=== PATIENT | male | born 1970 | race Caucasian/White ===

== ENCOUNTER 2017-12-10 21:47 | Inpatient (IN) | payer MEDICAID ==
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
[2017-12-10] MEDS ORDERED: ONDANSETRON DISINTEGRATING 4 MG TAB PO PRN (22:01)
[2017-12-10] MEDS ORDERED: ONDANSETRON 4 MG/2 ML VIAL IVP PRN (22:01)
[2017-12-10 22:07] LABS: PLATELET COUNT 287 10^3/uL (150-400)
[2017-12-10 22:17] LABS: INR 0.97 (0.83-1.16); PROTIME(PATIENT) 13.1 SEC (12.0-15.0)
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
[2017-12-11] MEDS: ACETAMINOPHEN 325 MG TAB PO PRN ×2 (05:42→13:28)
[2017-12-11] MEDS: NS 1,000 ML IV SCH ×2 (09:19→16:39)
[2017-12-11] MEDS: THIAMINE HCL 100 MG in NS 100 ML IV SCH (11:28)
[2017-12-11] MEDS: BACITRACIN ZINC 14.2 GM OINTTUBE TP SCH ×2 (11:28→23:31)
[2017-12-11] MEDS ORDERED: ALBUTEROL 60 PUFFS/8 GM MDI IH PRN (15:10)
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
--- NOTE | 2017-12-11 17:00 | PDMN ---
Medical Necessity Medical necessity: Change to IP status per MD order as of 12/11/17. MCG M595 Substance Related D/O, 47 y/o found unresponsive 2nd acute ETOH intoxication, Ethyl ETOH 403, continue IV fluids, monitoring and treatment.
--- NOTE | 2017-12-11 18:36 | TRAUMAPN ---
Trauma Progress Note Assessment/Plan: 12/11/2014 PAD#0 Assessment: Now 20 hours after ETOH level of 400. He should have a level approaching 0 now. No signs of withdrawal Still c/o of midline cervical pain. Plan: MRI neck Subjective: I still have a headache and multiple areas that are tender Objective: Vital Signs Temp Pulse Resp BP Pulse Ox 36.8 C 84 16 120/67 93 12/11/17 16:31 12/11/17 16:31 12/11/17 16:31 12/11/17 16:31 12/11/17 16:31 12/10/17 12/11/17 12/12/17 05:59 05:59 05:59 Intake Total 1000 Balance 1000 PT 13.1 SEC (12.0-15.0) 12/10/17 21:50 INR 0.97 (0.83-1.16) 12/10/17 21:50 - C-Spine Clearance Cervical Spine Cleared: No Physical Exam - Physical Exam General Appearance: WD/WN, alert, no apparent distress Neck: tender midline Respiratory: lungs clear, normal breath sounds Time Spent w/Patient (minutes): 15
[2017-12-11] MEDS: KETOROLAC 30 MG/1 ML SDV IVP SCH ×2 (18:58→23:30)
[2017-12-11] MEDS: ACETAMINOPHEN 325 MG TAB PO SCH (23:30)
[2017-12-11] MEDS: FAMOTIDINE 20 MG TAB PO SCH (23:32)
[2017-12-12] MEDS: ACETAMINOPHEN 325 MG TAB PO SCH ×2 (06:40→14:41)
[2017-12-12] MEDS: KETOROLAC 30 MG/1 ML SDV IVP SCH ×3 (06:41→17:42)
[2017-12-12] MEDS: THIAMINE HCL 100 MG in NS 100 ML IV SCH (09:36)
[2017-12-12] MEDS: FAMOTIDINE 20 MG TAB PO SCH ×2 (09:41→22:27)
[2017-12-12] MEDS: BACITRACIN ZINC 14.2 GM OINTTUBE TP SCH ×2 (09:42→22:27)
[2017-12-12] MEDS: ACETAMINOPHEN 500 MG TAB PO SCH ×2 (14:39→22:27)
--- NOTE | 2017-12-12 14:41 | TRAUMAPNT ---
Trauma Tertiary Progress Note New Findings: C/o blurry vision, left eye. Normally wears glasses but they are not available. He says that this represents a change from baseline. Assessment/Plan: 12/11/2014 PAD#0 Assessment: Now 20 hours after ETOH level of 400. He should have a level approaching 0 now. No signs of withdrawal Still c/o of midline cervical pain. Plan: MRI neck 12/12/2017 PAD#1 Assessment: Because of persistent neck pain an MRI was ordered. 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 Left eye: Has ecchymosis on medial aspect of left upper eyelid and lateral canthus. No hyphema. Otherwise doing well Plan: Neurosurgery consult pending Ophthalmology consult pending Discharge dependent upon consultants input Subjective: my vision is blurry Objective: Vital Signs Temp Pulse Resp BP Pulse Ox 37.1 C 64 14 142/81 H 93 12/12/17 11:41 12/12/17 11:41 12/12/17 11:41 12/12/17 11:41 12/12/17 11:41 12/11/17 12/12/17 12/13/17 05:59 05:59 05:59 Intake Total 1250 Output Total 500 250 Balance 750 -250 PT 13.1 SEC (12.0-15.0) 12/10/17 21:50 INR 0.97 (0.83-1.16) 12/10/17 21:50 - C-Spine Clearance Cervical Spine Cleared: No Physical Exam - Physical Exam General Appearance: WD/WN, alert, no apparent distress EENT: other (visual perception left eye - blurry, left medial upper eyelid ecchymotic. left lateral canthus ecchymotic) Neck: tender midline Respiratory: chest non-tender, lungs clear, normal breath sounds Cardiac/Chest: regular rate, rhythm Abdomen: non-tender, soft Male Genitalia: deferred Rectal: deferred Back: Normal inspection Skin: normal color, warm/dry Extremities: normal range of motion, non-tender Neuro/Psych: no motor/sensory deficits, alert, normal mood/affect, oriented x 3 Time Spent w/Patient (minutes): 25
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
[2017-12-13] MEDS: KETOROLAC 30 MG/1 ML SDV IVP SCH ×3 (01:00→11:45)
[2017-12-13] MEDS: ACETAMINOPHEN 500 MG TAB PO SCH ×2 (06:34→14:11)
[2017-12-13 08:43] VITALS: BP 118/73
[2017-12-13] MEDS: FAMOTIDINE 20 MG TAB PO SCH (11:17)
[2017-12-13] MEDS: BACITRACIN ZINC 14.2 GM OINTTUBE TP SCH (11:17)
[2017-12-13] MEDS ORDERED: IBUPROFEN 200 MG TAB PO SCH (12:00)
--- NOTE | 2017-12-13 14:23 | TRAUMAPN ---
Trauma Progress Note Assessment/Plan: 12/11/2014 PAD#0 Assessment: Now 20 hours after ETOH level of 400. He should have a level approaching 0 now. No signs of withdrawal Still c/o of midline cervical pain. Plan: MRI neck 12/12/2017 PAD#1 Assessment: Because of persistent neck pain an MRI was ordered. 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 Left eye: Has ecchymosis on medial aspect of left upper eyelid and lateral canthus. No hyphema. Otherwise doing well Plan: Neurosurgery consult pending Ophthalmology consult pending Discharge dependent upon consultants input PAD#2 12/13/2017 Drs. Madsen, and Estephania consults appreciated Patient set for discharge Subjective: no complaints Objective: Vital Signs Temp Pulse Resp BP Pulse Ox 36.8 C 66 18 118/73 95 12/13/17 08:24 12/13/17 08:24 12/13/17 08:24 12/13/17 08:24 12/13/17 08:24 12/12/17 12/13/17 12/14/17 05:59 05:59 05:59 Intake Total 1250 900 Output Total 500 1750 275 Balance 750 -850 -275 PT 13.1 SEC (12.0-15.0) 12/10/17 21:50 INR 0.97 (0.83-1.16) 12/10/17 21:50 - C-Spine Clearance Cervical Spine Cleared: Yes Provider who Cleared Cervical Spine: zina Physical Exam - Physical Exam General Appearance: WD/WN, alert, no apparent distress Respiratory: lungs clear, normal breath sounds Cardiac/Chest: regular rate, rhythm Abdomen: non-tender, soft Male Genitalia: deferred Rectal: deferred Back: Normal inspection Skin: normal color, warm/dry Extremities: normal range of motion, non-tender Neuro/Psych: no motor/sensory deficits, alert, normal mood/affect, oriented x 3
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
--- NOTE | 2017-12-13 16:54 | ASMTLACE ---
LACE Length of stay for Answers: 2 days current admission Acuity / Level of Answers: Yes Care: Did the patient have an inpatient admission? Comorbidities - select Answers: Any tumor (including all that apply lymphoma or leukemia) Other Notes: Hx of TBI # of Emergency department Answers: 1-2 visits in the last 6 months Social determinants Answers: Homelessness (street, nursing home) Score: 12 Date Signed: 12/13/2017 04:44 PM Electronically Signed By:ADITI Fofana
--- NOTE | 2017-12-13 16:57 | ASMTCMCOM ---
CM Note CM Note Notes: Pt medically stable for d/c back to [facility]. Pt provided d/c paperwork detailing his dates of admission at [facility]. Pt provided clothing and has a bus pass. Pt scheduled for follow up at [facility] 12/22 which was the soonest appointment. Pt stated he was already planning on going to [facility] tomorrow and they may be able to take him if they have a cancellation. Pt also found out his neurology appointment is Wednesday and was not today. Date Signed: 12/13/2017 04:47 PM Electronically Signed By:ADITI Fofana
== END 2017-12-13 15:39 | disposition home or self-care (01) | DRG 775 ==
LOC: F2N 23:02 → F3N 12-11 16:26 → MERGE 12-11 16:34 → OBSVTOIN 12-11 16:34
PROVIDERS: ADMIT Surgery; ATTEND Surgery
DX: F10.129 Alcohol abuse with intoxication, unspecified (principal); M48.02 Spinal stenosis, cervical region; S05.12XA Contusion of eyeball and orbital tissues, left eye, initial encounter; Y90.8 Blood alcohol level of 240 mg/100 ml or more; Y09 Assault by unspecified means; R40.2420 Glasgow coma scale score 9-12, unspecified time; J45.909 Unspecified asthma, uncomplicated
CPT/HCPCS: 82435-PO; 82565-PO; 82947-PO; 84132-PO; 84295-PO; 84520-PO; 85014-PO; 92507-GN; 92523-GN; 96374; 97116-GP; 97162-GP; 97165-GO; 97530-GP; 97535-GO; G0378; G0480; J1885; J3411